=== PATIENT | male | born 2000 | race Caucasian/White ===

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

== ENCOUNTER 2021-12-20 09:39 | Emergency (ER) | payer OTHER ==
[~2021-12-20] VITALS: Ht 185.4 cm; Wt 90.7 kg
[~2021-12-20 09:39] MED LIST changes: +CEPHALEXIN250 MG/5 M PO; +HYDROCODONE-ACE15 M3 PO
[2021-12-20] MEDS ORDERED: NEOSPORIN OIN28.3 GM TD (10:11)
[2021-12-20] MEDS ORDERED: PERCOCET 5-3251 EACH PO (10:11)
[2021-12-20] MEDS ORDERED: VENTOLIN HFA18 GM INH (10:18)
== END 2021-12-20 10:45 | disposition home or self-care (01) ==
LOC: ED 09:39
DX: T20.66XA Corrosion of second degree of forehead and cheek, initial encounter (principal); T20.62XA Corrosion of second degree of lip(s), initial encounter; T20 Burn and corrosion of head, face, and neck; T20.67XA Corrosion of second degree of neck, initial encounter; T22.612A Corrosion of second degree of left forearm, initial encounter; T22.611A Corrosion of second degree of right forearm, initial encounter; T32.11 Corrosions involving 10-19% of body surface with 10-19% third degree corrosion; T79.9XXA Unspecified early complication of trauma, initial encounter; J45.909 Unspecified asthma, uncomplicated; Z79.899 Other long term (current) drug therapy; X08.8XXA Exposure to other specified smoke, fire and flames, initial encounter
CPT/HCPCS: 99283

== ENCOUNTER 2021-12-21 08:55 | Emergency (ER) | payer OTHER, BC ==
[~2021-12-21] VITALS: Ht 185.4 cm; Wt 90.7 kg
[~2021-12-21 08:55] MED LIST changes: +NEOSPORIN OIN28.3 GM TD; +PERCOCET 5-3251 EACH PO; +VENTOLIN HFA18 GM INH
== END 2021-12-21 10:19 | disposition home or self-care (01) ==
LOC: ED 08:55
DX: T20 Burn and corrosion of head, face, and neck (principal); T22.6 Corrosion of second degree of shoulder and upper limb, except wrist and hand; T32.11 Corrosions involving 10-19% of body surface with 10-19% third degree corrosion
CPT/HCPCS: 99282

== ENCOUNTER 2023-03-30 18:17 | Emergency (ER) | payer SELFPAY ==
[~2023-03-30] VITALS: Ht 185.4 cm; Wt 96.8 kg
[2023-03-30 19:12] LABS: BASOPHILS 0.4 % (0-2); EOSINOPHILS 1.8 % (0-6); HEMATOCRIT 46.6 % (35.0-50.0); HEMOGLOBIN 15.8 g/dL (12.0-18.0); LYMPHOCYTES 8.5 % (24-44); MCHC 33.8 g/dl (30-36); MCV 88.7 fl (81-99); MONOCYTES 9.1 % (0-12); NEUTROPHILS 80.2 % (39-80); PLATELET COUNT 234 K/uL (140-440); RBC 5.26 M/ul (4.3-5.7); RDW 12.6 (10.5-15.0)
[2023-03-30 19:18] LABS: BILIRUBIN, URINE NEGATIVE (negative); BLOOD/HGB, URINE NEGATIVE (Negative); KETONE, URINE NEGATIVE (Negative); LEUK ESTERASE, URINE NEGATIVE (negative); NITRITE, URINE NEGATIVE (negative); PH, URINE 6.5 (5-7)
[2023-03-30 19:30] LABS: ALBUMIN 4.2 g/dL (3.4-5.0); ALBUMIN/GLOBULIN RATIO 1.5 (1.1-2.4); ANION GAP 12.6 (7-21); BILIRUBIN, TOTAL 0.6 ng/dL (0.2-1.0); BUN/CREATININE RATIO 16.66 (6.0-28.6); CALCIUM 9.2 mg/dL (8.5-10.1); CREATININE, SERUM 1.02 mg/dL (0.70-1.30); MAGNESIUM 1.8 mg/dL (1.8-2.4); POTASSIUM 3.6 mmol/L (3.5-5.1)
[2023-03-30] MEDS ORDERED: ONDANSETRON ODT8 MG PO (20:44)
[2023-03-30] MEDS ORDERED: LOMOTIL TABLET1 EACH PO (20:44)
[2023-03-30 21:07] VITALS: BP 124/68
== END 2023-03-30 21:07 | disposition home or self-care (01) ==
LOC: ED 18:17
PROVIDERS: Emergency Medicine
DX: K52.9 Noninfective gastroenteritis and colitis, unspecified (principal)
CPT/HCPCS: 36415; 74177; 80053; 81003; 83690; 83735; 85025; A9270; J2270; J2405; J7040; Q9967

== ENCOUNTER 2023-04-03 12:22 | Emergency (ER) | payer BC ==
[~2023-04-03] VITALS: Ht 185.4 cm; Wt 96.6 kg
[~2023-04-03 12:22] MED LIST changes: +LOMOTIL TABLET1 EACH PO; +ONDANSETRON ODT8 MG PO
--- OUTSIDE RECORDS SUMMARY | 2023-04-03 12:30 | XMS ---
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 [place] VISIT COUNT (12 MO.) [address] [facility] TOTAL 2 NOTE: Visits indicate total known visits. ED/UCC VISIT TRACKING (12 MO.) 04/03/2023 12:22 [facility] TYPE: Emergency COMPLAINT: - FOLLOW UP 03/30/2023 18:18 [facility] [place] TYPE: Emergency COMPLAINT: - HEADACHE, ABD PAIN DIAGNOSES: - Generalized abdominal pain - Noninfective gastroenteritis and colitis, unspecified INPATIENT VISIT TRACKING (12 MO.) No inpatient visits to display in this time frame [email or web address]
[2023-04-03 12:59] VITALS: BP 154/79
== END 2023-04-03 13:00 | disposition home or self-care (01) ==
LOC: ED 12:22
DX: Z02.89 Encounter for other administrative examinations (principal); Z87.19 Personal history of other diseases of the digestive system
CPT/HCPCS: 99282